=== PATIENT | female | born 1960 | race Caucasian/White ===

== ENCOUNTER 2018-07-19 08:36 | Day surgery (SDC) ==
[2018-07-19] MEDS ORDERED: NS 500 ML IV ONE (09:12)
[2018-07-19] MEDS ORDERED: DILAUDID IV ONE ×2 (09:12→12:29)
[2018-07-19] MEDS ORDERED: ZOFRAN IV ONE (09:12)
--- NOTE | 2018-07-19 09:40 | PROVIDER DOCUMENTATION ---
HPI-Abdominal Pain/GI Problem - General Chief Complaint: Abdominal Pain Stated Complaint: SEVERE ABDOMEN PAIN X 72 HOURS Time Seen by Provider: 07/19/18 09:01 Source: patient Allergies/Adverse Reactions: Patient Allergies Allergy/AdvReac Type Severity Reaction Status Date / Time adhesive Allergy Unknown Verified 02/01/18 20:02 azithromycin Allergy Unknown Verified 02/01/18 20:02 levofloxacin [From Levaquin] Allergy Unknown Verified 02/01/18 20:02 morphine Allergy Unknown Verified 02/01/18 20:02 Home Medications: Home Medication List Medication Instructions Recorded Confirmed Last Taken Type Hydrocodone/APAP 10 mg/325 mg 1 ea PO Q6H PRN PRN 3 Days #12 tab 02/01/18 Unknown Rx [[place]-10] Levothyroxine [Synthroid] 50 microgm PO DAILY 02/01/18 02/01/18 01/31/18 21:30 History Sertraline HCl 200 mg PO HS 02/01/18 02/01/18 01/31/18 21:30 History - History of Present Illness-ABD Nature of Presenting Problems: Patient is a 57 yowf who complains of upper abdominal pain, worse in RUQ since yesterday am (Sunday at 0200). Pain associated with n/v. She denies any other symptoms and is non-toxic in appearance. Dark Stools Present?: reports: none noticed. denies: maroon, black, tarry, bright red blood Rectal Bleeding: denies: bright red blood on paper Rectal Pain: reports: none Review of Systems - Adult - REVIEW OF SYSTEMS - ADULT Constitutional: reports: no symptoms reported. denies: chills, fever Eyes: reports: no symptoms reported Ears, Nose, Mouth & Throat: reports: no symptoms reported Cardiovascular: reports: no symptoms reported Respiratory: reports: no symptoms reported Gastrointestinal: reports: see HPI, abdominal pain, nausea, vomiting. denies: diarrhea, rectal bleeding Genitourinary: reports: no symptoms reported. denies: dysuria, flank pain Musculoskeletal: reports: no symptoms reported Integumentary: reports: no symptoms reported Neurological: reports: no symptoms reported Psychiatric: reports: no symptoms reported Endocrine: reports: no symptoms reported Hematologic/Lymphatic: reports: no symptoms reported Allergic/Immunologic: reports: no symptoms reported All Other Systems: Reviewed and Negative Past History - Adult - PAST MEDICAL HISTORY-ADULT Review of Records: reports: Nursing Assessment Review, Medications Reviewed, Social history reviewed & non-contributory. Major Childhood Illnesses: reports: denies history Cardiovascular: reports: hyperlipidemia Respiratory: reports: denies history Gastrointestinal: reports: IBS Obstetrical/Gynecological: reports: denies history Genitourinary: reports: denies history Musculoskeletal: reports: denies history Neurological: reports: denies history Endocrine/Immune: reports: thyroid disorder Other Conditions: reports: denies history - PRIOR SURGERIES/PROCEDURES Surgical/Procedure History: reports: orthopedic (extremity), other (tubal ligation) - IMMUNIZATION STATUS Childhood Immunizations: See Nurse Assessment Flu Vaccine: See Nurse Assessment - FAMILY HISTORY Family History: reviewed, not pertinent - SOCIAL HISTORY Smoking: non-smoker Physical Exam-General - PHYSICAL EXAM-ADULT Initial Vital Signs Reviewed: Yes - CONSTITUTIONAL General Appearance: alert, moderate distress. negative: lethargic, slow to respond - EYES Eyes: pink conjunctivae - HEAD, EARS, NOSE, MOUTH & THROAT HENMT: normocephalic/atraumatic, moist mucous membranes - NECK Neck: non-tender, full range of motion, supple, normal inspection - RESPIRATORY Respiratory: chest non-tender, lungs clear, normal breath sounds, no pleuratic chest pain, no respiratory distress, no accessory muscle use - CARDIOVASCULAR Cardiovascular: normal peripheral pulses, regular rate, rhythm, no gallop, no murmur - GASTROINTESTINAL (ABDOMEN) Abdominal Exam: normal bowel sounds, soft, no organomegaly, no pulsatile mass, guarding, rigid, rebound, tenderness (Entire upper abdomen, more in RUQ. Palpation of lower abdomen causes pain in upper abdomen.). negative: distended, hernia, mass - MUSCULOSKELETAL Back Exam: normal inspection, no CVA tenderness Extremity: normal range of motion, non-tender, normal gait, normal inspection - SKIN Integumentary: normal color, warm/dry. negative: cyanosis, diaphoresis, jaundice, mottled, pallor - NEUROLOGIC Neurologic: grossly normal, no motor/sensory deficits - PSYCHIATRIC Psych/Mental Status: normal mood/affect, normal thought content, normal thought process, oriented x 3 Progress - PLAN OF CARE/RESULTS Progress/Plan/Lab Results: Vital Signs - 8 hr 07/19/18 08:45 Temperature 97.8 F Pulse Rate 129 H Respiratory Rate 16 Blood Pressure 168/84 O2 Sat by Pulse Oximetry 95 Orders Category Date Time Status Nursing- Obtain EKG ONCE Care 07/19/18 09:12 Active NPO Diet 07/19/18 09:13 Active AMYLASE [CHEM] Stat Lab 07/19/18 09:11 Uncollected CBC WITH DIFF [HEME] Stat Lab 07/19/18 09:11 Uncollected COMPREHENSIVE METABOLIC PANEL [CHEM] Stat Lab 07/19/18 09:11 Uncollected LIPASE [CHEM] Stat Lab 07/19/18 09:11 Uncollected TROPONIN T Stat Lab 07/19/18 09:11 Uncollected UA NIMS W/REFLEX CULT [URINALYSIS] Stat Lab 07/19/18 09:12 Uncollected 0.9% Sodium Chloride Inj [Ns] 500 ml Med 07/19/18 09:12 Active IV 999 mls/hr Hydromorphone [Dilaudid] Med 07/19/18 09:12 Discontinued 1 mg IV NOW ONE Ondansetron [Zofran] Med 07/19/18 09:12 Discontinued 4 mg IV NOW ONE EKG [EKG] Stat Ther 07/19/18 09:11 Ordered 1255-Pt in agreement with current plan of care. Dr. Worthy at bedside. Pt to surgery. Result Diagrams: 07/19/18 09:41 07/19/18 10:18 - CONSULTS/PCP/HOSPITALIST Notification #1 *Consult/PCP/Hospitalist*: Dr. Worthy Time Discussed: 12:40 Reason/Comments: acute cholecystitis Consult Disposition: Will see in ED Departure - Departure Date of Disposition Decision: 07/19/18 Time of Disposition Decision: 12:45 DIAGNOSIS: Acute cholecystitis Disposition: ADMITTED INPATIENT 09 Certified Medical Emergency: Emergent Condition: Stable Referrals and Follow-Ups: Anand Cordoba [Primary Care Provider] - - Critical Care Note This patient required my direct & personal management of CC.: No Attestation - Physician/ BEATRICE Attestation Patient care was provided by Advanced Practice Provider:: Yes Advanced Practice Provider:: Victor Manuel Mariano Advanced Practice Provider documentation review:: The Mid-level provider documentation, treatment plan and medical decision making was reviewed by the physician who agrees with all treatment and medical decision making by the MLP. The physician spent face to face time with patient:: No Advanced Practice Provider documentation review:: Supervising physician onsite a nd consulted in the evaluation and care of this patient. The physician did not have a face to face encounter with the patient.
[2018-07-19 09:57] LABS: BASO# 0.01 X1000 (0.0-0.2); BASO% 0.1 % (0.0-0.8); EOS# 0.03 X1000 (0.0-0.7); EOS% 0.2 % (0.0-10.0); HEMATOCRIT 43.4 % (37.0-47.0); HEMOGLOBIN 15.6 g/dL (12.0-16.0); IMM GRAN# 0.05 X1000 (0.0-0.04); IMM GRAN% 0.3 % (0.0-0.5); LYMPH# 1.28 X1000 (1.2-3.4); LYMPH% 8.3 % (20.5-51.1); MCH 29.8 PG (27-31); MCHC 35.9 g/dL (33-37); MCV 82.8 FL (81-99); MPV 9.9 FL (7.4-10.4); NEUT# 12.72 X1000 (1.4-6.5); NEUT% 82.1 % (42.2-75.2); PLT 250 X1000 (130-400); RBC 5.24 XMIL (4.2-5.4); RDW 13.4 % (11.5-14.5); WBC 15.49 X1000 (4.8-10.8)
--- NOTE | 2018-07-19 10:17 | EKG Report ---
Test Performed on : 07/19/2018 09:25:53 AM Test Reason : upper abd pain Blood Pressure : / mmHG Vent. Rate : 106 BPM Atrial Rate : 106 BPM P-R Int : 156 ms QRS Dur : 090 ms QT Int : 332 ms P-R-T Axes : 031 075 045 degrees QTc Int : 441 ms Sinus tachycardia. Otherwise normal ECG No previous ECGs available Unconfirmed Result
[2018-07-19 10:46] LABS: AGAP 11; ALB/GLOB RATIO 1.1; ALBUMIN 4.1 g/dL (3.5-5.0); ALKALINE PHOSPHATASE 109 U/L (32-104); AMYLASE 47 U/L (20-200); BUN 10 mg/dL (8-22); CHLORIDE 94 mmol/L (98-107); COSMO 267; CREATININE 0.9 mg/dL (0.5-0.9); ESTIMATED GFR > 60; GLUCOSE 196 mg/dL (70-104); GOT 18 U/L (10-30); GPT 20 U/L (10-36); LIPASE 47 U/L (13-60); POTASSIUM 3.7 mmol/L (3.5-5.1); SODIUM 131 mmol/L (136-145); TCO2 26 mmol/L (25-35); TOTAL BILIRUBIN 2.27 mg/dL (0.20-1.00)
[2018-07-19 12:25] LABS: URINE SOURCE CLEAN CATCH
[2018-07-19 12:29] LABS: BILIRUBIN URINE NEGATIVE (NEGATIVE); BLOOD URINE SMALL (NEGATIVE); COLOR YELLOW; GLUCOSE URINE NEGATIVE (NEGATIVE); KETONE URINE NEGATIVE (NEGATIVE); LEUKOCYTES URINE NEGATIVE (NEGATIVE); NITRITE URINE NEGATIVE (NEGATIVE); PROTEIN URINE 50 mg/dL (NEGATIVE); SP GRAVITY URINE > 1.050; TURBIDITY URINE CLEAR (CLEAR); UROBILINOGEN URINE NORMAL (NORMAL)
[2018-07-19 12:30] LABS: UR EPITHELIAL CELLS <10 /HPF (<10); URINE BACTERIA NEGATIVE /HPF; URINE RBC <10 /HPF (<10); URINE WBC <10 /HPF (<10)
--- NOTE | 2018-07-19 12:34 | Diag Imaging Result Doc PS360 ---
EXAM: CT ABD/PELVIS W/IV CONT ONLY HISTORY: RUQ pain TECHNIQUE: CT abdomen and pelvis with intravenous contrast COMPARISON: None. FINDINGS: There calcified granuloma in the lower lungs. Pronounced fatty infiltration of the liver. There are multiple large stones within the gallbladder. The gallbladder is distended. There are mild adjacent inflammatory changes. Normal spleen, pancreas, adrenal glands, and kidneys. No hydronephrosis. Normal aorta. No bowel obstruction. No abscess. No ascites. Large multiseptated pelvic mass measuring approximately 7.5 x 9.3 x 7.2 cm. This is in the midline just above the urinary bladder and uterus. No free fluid in the pelvis. Normal uterus. The urinary bladder is distended and is normal. IMPRESSION: 1.Cholelithiasis and acute cholecystitis 2.Fatty infiltration of the liver 3.Large multiseptated cystic pelvis mass likely arising from one of the ovaries. This report was discussed with Josefina the charge nurse in the emergency room on 07/19/2018 at 12:30 PM and was readback. This exam was performed using automated exposure control, adjustment of mA or kV according to patient size, and/or use of iterative reconstruction technique. Electronically signed by Janes Edgar 07/19/2018 12:31 PM
[2018-07-19] MEDS ORDERED: DIPRIVAN 1% ONE (12:58)
[2018-07-19] MEDS ORDERED: ZOSYN 3.375 GM in NS 50 ML IV ONE (13:00)
[2018-07-19] MEDS ORDERED: XYLOCAINE-MPF 2% ONE (13:05)
[2018-07-19] MEDS ORDERED: QUELICIN (DOSE) ONE ×2 (13:06)
[2018-07-19] MEDS ORDERED: FENTANYL ONE (13:10)
[2018-07-19] MEDS ORDERED: SODIUM CHLORIDE 0.9% ONE (13:19)
[2018-07-19] MEDS ORDERED: SENSORCAINE-MPF 0.5%/EPI 1:200,000 ONE (13:19)
[2018-07-19] MEDS ORDERED: LR 1,000 ML ONE ×2 (13:19→15:16)
[2018-07-19] MEDS: LR 1,000 ML IV SCH ×2 (13:23→18:36)
--- NOTE | 2018-07-19 14:37 | HISTORY AND PHYSICAL ---
HISTORY OF PRESENT ILLNESS: Ms. Mata is a 57-year-old overweight white female who presented to our emergency department with a 12-hour history of abdominal pain, which was in her epigastric and right upper quadrant, radiating like a belt like to her back. She also had some nausea and vomiting. Part of her evaluation in the emergency department was a CT scan of her abdomen and pelvis, which suggested acute cholecystitis and cholelithiasis. It also mentioned a large ovarian cyst. We were asked to evaluate her because of her acute cholecystitis. PAST MEDICAL HISTORY: Irritable bowel syndrome. PAST SURGICAL HISTORY: She has had a tubal ligation. She has had orthopedic surgery. ALLERGIES: Erythromycin, levofloxacin, and morphine. MEDICATIONS: [place], Synthroid, and sertraline. SOCIAL HISTORY: She is not a smoker. She had a friend at the bedside. REVIEW OF SYSTEMS: A 14-point review of systems was performed and was essentially negative. PHYSICAL EXAMINATION: GENERAL: On exam Ms. Mata is an overweight middle-aged white female who is awake, cooperative. VITAL SIGNS: Her heart rate is 123, blood pressure 135/93, and O2 saturation is 93%. She is afebrile. HEENT AND NECK: She has no jaundice. No oral lesions. Satisfactory dentition. No cervical or supraclavicular lymphadenopathy. HEART: Has a regular rate. She is tachycardic. LUNGS: Clear. ABDOMEN: Was protuberant. She was tender in the upper abdomen. She had no costovertebral tenderness. RECTAL/VAGINAL: Exams were not performed. EXTREMITIES: She does have palpable femoral pulses. No significant peripheral edema. HEIGHT AND WEIGHT: She is 5 feet 3 inches and weighs 230 pounds. LABORATORY DATA: Her white blood cell count is 15.5. Electrolytes within normal limits. Her total bilirubin was 2.27. IMPRESSION: Acute cholecystitis with cholelithiasis. PLAN: Laparoscopic, possible open cholecystectomy this afternoon. I have discussed the procedure in detail with her including its risks of bleeding, infection, injury to the extrahepatic bile ducts requiring reoperation, conversion of laparoscopic to open cholecystectomy, bile leak requiring reoperation for drainage, and injury to intraabdominal contents for trocar placement. She understands the need for surgery and its risks, and she wants to proceed. cc: Viktoria Worthy MD
[2018-07-19] MEDS ORDERED: PHENERGAN IV PRN (15:28)
[2018-07-19] MEDS ORDERED: SODIUM CHLORIDE 0.9% INJ PRN (15:30)
--- NOTE | 2018-07-19 18:22 | OPERATIVE NOTE ---
PROCEDURE DATE: 07/19/2018 PREOPERATIVE DIAGNOSIS: Acute cholecystitis with cholelithiasis. POSTOPERATIVE DIAGNOSIS: Acute cholecystitis with cholelithiasis. PRINCIPAL PROCEDURE: Laparoscopic cholecystectomy without intraoperative cholangiogram. SURGEON: Viktoria Worthy MD. ANESTHESIA: General in addition to local anesthetic. ESTIMATED BLOOD LOSS: 50 mL. DRAINS: None. INDICATIONS: Ms. Lisa Mata is a 57-year-old, overweight, white female who presented to our emergency department with a 12-hour history of upper abdominal pain. As part of her evaluation, she underwent a CT scan of her abdomen and pelvis which suggested acute cholecystitis as did her exam. Cholecystectomy was recommended. FINDINGS: Her gallbladder was thickened, tightly distended and had large stones within it. It was acutely inflamed. Her gallbladder was enlarged, fatty infiltrated. The CT showed that she had a 9 cm pelvic cyst. We did not deal with that during this operation. We did not do an intraoperative cholangiogram, but I was comfortable with the anatomy in the triangle of Calot despite the inflammation in this area. DESCRIPTION OF PROCEDURE: The patient was brought to the operating room, placed supine, received general anesthesia, was intubated. She needed to be resuscitated with fluid. Her abdomen was prepped and draped within the sterile field. She received IV Zosyn and we began the procedure by making a small incision below the umbilicus with a 15 blade scalpel. Veress needle was introduced through this incision into the abdomen. Pneumoperitoneum was established. The Veress needle was removed and I placed an 11 mm trocar through this incision into the abdomen. The camera was placed through this port, and the abdomen was explored for injury, there was none. Three other trocars were placed along the right costal margin under direct vision of the camera. I placed an 11 mm trocar just to the right of the midline and two 5 mm trocars in our midclavicular and anterior axillary lines. Through our 11 mm trocar superiorly, we used a needle and suction to decompress the gallbladder, which was full of white bile. We also had to place another 11 mm trocar left mid abdomen under direct vision of the camera so that I could place a fan and pressed down on her colon so that I could see the triangle of Calot. We used a grasper with teeth to grab the fundus of the gallbladder and retracted it superiorly along with the right lobe of the liver. Another grasper with teeth was used to grab the body of the gallbladder and I bluntly dissected out the triangle of Calot. We identified her cystic duct along its length and also our cystic artery. Her cystic duct was short, I felt that our exposure was good and I did not feel that we would easily get this exposure again with performing a cholangiogram. I therefore placed a clip at the cystic duct gallbladder junction and 2 clips proximally on the cystic duct. Then I divided the cystic duct between clips using hook scissors. The cystic artery was identified. I placed a clip distally, 2 proximally, and it was divided using hook scissors. The spatula cautery was used to remove the gallbladder from the liver bed and then I used an endobag to remove the gallbladder through our umbilical incision. We had to enlarge this incision to get the swollen gallbladder out. I placed the trocar back through this incision and the area of operation was thoroughly inspected, irrigated, and the irrigation was removed with suction. There was no evidence of ongoing bleeding or bile leak. No drains were left. All trocars removed under direct vision of the camera. The pneumoperitoneum was allowed to dissipate. I used several [id number] 0 Vicryl stitches to close the fascia at our umbilicus. I irrigated out this wound and all skin was closed with 4-0 Monocryl subcuticular stitches. Dressings were applied. Plans are for her to go the recovery room and be hospitalized overnight. cc: Viktoria Worthy MD
[2018-07-19] MEDS: NORCO-10 PO PRN (18:35)
[2018-07-20] MEDS: NORCO-10 PO PRN ×2 (01:49→09:35)
[2018-07-20] MEDS ORDERED: PERIDEX MT SCH (09:00)
[2018-07-20 11:18] VITALS: BP 134/60
--- NOTE | 2018-07-20 20:27 | DISCHARGE SUMMARY ---
ADMISSION DATE: 07/19/2018 DISCHARGE DATE: 07/20/2018 ADMITTING DIAGNOSIS: Acute cholecystitis with cholelithiasis. DISCHARGE DIAGNOSIS: Acute cholecystitis with cholelithiasis. PRINCIPAL PROCEDURE: Laparoscopic cholecystectomy without intraoperative cholangiogram on 07/19/2018. DISCHARGE DISABILITY: Full. DISCHARGE DIET: Is regular. DISCHARGE DISPOSITION: She will return to our outpatient offices in a week for followup. DISCHARGE DISABILITIES: Full. DISCHARGE MEDICATIONS: She is to return to her home medications. Ms Lisa Mata is a overweight 57-year-old white female presented to our emergency department with epigastric and right upper quadrant pain. A CT scan was performed as part of her evaluation and it suggested acute cholecystitis as did her exam. Later that afternoon she went to the operating room and underwent a laparoscopic cholecystectomy without intraoperative cholangiogram for acute cholecystitis with cholelithiasis. No drains were left at the time of surgery. It must be noted that the CT scan did show a large septated ovarian cyst but that was not addressed at the time of her laparoscopy because her main issue was her acute cholecystitis. No drains were left at the time of surgery and she was hospitalized overnight. On postop day 1 she was feeling much better clinically, she was tolerating at least liquids, she was able to ambulate in the arango and she felt well enough to be discharged home under the care of her family with followup in our outpatient offices in a week. At discharge her heart rate was 93 to 100, blood pressure is 144/80, O2 saturation 100%. She was afebrile. She knows to contact us with any increasing abdominal pain or fever. cc: Viktoria Worthy MD
== END 2018-07-20 12:49 | disposition home or self-care (01) ==
LOC: 4N 08:36 → ED 08:36 → OPS 15:14
PROVIDERS: ATTEND Surgery
CPT/HCPCS: 74177; 80053; 81001; 82150; 83605; 83690; 84484; 85025; 87040; 88304; 93005; 94761; 94799; 96361; 96365; 96375; 96376; 99285; A9270; C1751; J0330; J1170; J2405; J2543; J3010; J7040; J7120; Q9966; Q9967